=== PATIENT | female | born 1980 | race Caucasian/White ===

== ENCOUNTER 2016-04-26 06:31 | Emergency (ER) | payer OTHER ==
[~2016-04-26] VITALS: Wt 93.5 kg
[~2016-04-26 06:31] MED LIST: ADVAIR; ALBUTEROL; BCP; FAMO20TA44 PO; FLUT1DIS22; LIDOCAINE 4%; PNV1TABL43 PO; RTPRO5
[2016-04-26] MEDS ORDERED: AZIT250T94 PO (07:24)
[2016-04-26] MEDS ORDERED: IBUP-1542 PO (07:24)
--- NOTE | 2016-04-26 07:34 | ERD ---
ER Documentation Chief Complaint Date/Time DATE: 04/26/16 TIME: 07:33 Chief Complaint cough and congestion for the past few days. headache and sore throat HPI Patient is a 35-year-old female who presents with cough and congestion and headache for the past 3 days. She also admits to nasal congestion. Cough is dry worse at night. Denies fever. Denies nausea vomiting or diarrhea. Children are here with similar symptoms ROS All systems reviewed and are negative except as per history of present illness. Medications Home Meds Active Scripts Ibuprofen* (Motrin*) 600 Mg Tab, 600 MG PO Q6H Y for PAIN AND OR ELEVATED TEMP, #30 TAB Prov:ALEKSANDRA MEJIA PA-C 04/26/16 Azithromycin* (Zithromax*) 250 Mg Tablet, 250 MG PO .ZPACK DIRECTED, #6 TAB TAKE 500 MG (2 TABS) THE FIRST DAY THEN 250 MG (1 TAB) DAYS 2-5 Prov:ALEKSANDRA MEJIA PA-C 04/26/16 [Lidocaine Cream 4%] No Conflict Check, 1 APPLIC TID Y for PAIN, #1 TUB Prov:JESUS AUGUSTIN MD 12/12/15 Reported Medications Famotidine* (Pepcid* AC) 20 Mg Tablet, 20 MG PO Y 04/21/13 Vit/Fe Fumarate/Fa* ( Vitamin Tablet*) 1 Tab Tablet, 1 TAB PO DAILY 04/21/13 Albuterol Sulfate* (Proventil* Neb) 0.5 Ml Nebu 08/02/10 Fluticasone/Salmeterol (Advair 100-50 Diskus) 1 Disk W/Dev Disk.w.dev 08/02/10 [Bcp] No Conflict Check 10/13/09 [Advair] No Conflict Check 10/13/09 [Albuterol] No Conflict Check 10/13/09 Allergies Allergies: Coded Allergies: No Known Allergies (Verified Allergy, Mild, 04/21/13) PMhx/Soc History of Surgery: No Anesthesia Reaction: No Hx Neurological Disorder: No Hx Respiratory Disorders: Yes (ASTHMA) Hx Cardiac Disorders: No Hx Psychiatric Problems: No Hx Miscellaneous Medical Probl: No Hx Alcohol Use: Yes (OCCASSIONAL) Hx Substance Use: No Hx Tobacco Use: No Smoking Status: Never smoker FmHx Family History: No diabetes Physical Exam Vitals Vital Signs Date Time Temp Pulse Resp B/P Pulse Ox O2 Delivery O2 Flow Rate FiO2 04/26/16 06:51 98.1 67 21 109/68 98 Physical Exam Const: [] Head: Atraumatic Eyes: Normal Conjunctiva ENT: Normal External Ears, Nose and Mouth. Neck: Full range of motion..~ No meningismus. Resp: Clear to auscultation bilaterally Cardio: Regular rate and rhythm, no murmurs Abd: Soft, non tender, non distended. Normal bowel sounds Skin: No petechiae or rashes Back: No midline or flank tenderness Ext: No cyanosis, or edema Neur: Awake and alert Psych: Normal Mood and Affect Procedures/MDM Patient presents with cough and congestion. She is well-appearing in no distress. Vital signs are within normal limits. Low suspicion for pneumonia. Patient states that she will try antibiotics. I explained her I do not believe is indicated but she stated that she would only take as he got worse and so I gave her a Z-[place]. Recommended this patient follow up with her primary care doctor within 48 hours or return to the emergency room for any worsening of symptoms. However this time I do believe there is suitable for outpatient management. I answered all their questions and they agreed with the plan and were discharged home. Departure Diagnosis: Primary Impression: Bronchitis Condition: Stable Patient Instructions: Bronchitis, Antiobiotic Treatment (Adult) Additional Instructions: Call your primary care doctor TOMORROW for an appointment during the next 1-2 days.See the doctor sooner or return here if your condition worsens before your appointment time. ALEKSANDRA MEJIA PA-C Apr 26, 2016 07:34
== END 2016-04-26 07:37 | disposition home or self-care (01) ==
LOC: FTE 06:31
DX: J20.9 Acute bronchitis, unspecified (principal); J45.909 Unspecified asthma, uncomplicated
CPT/HCPCS: 99283

== ENCOUNTER 2016-05-24 07:05 | Emergency (ER) | payer OTHER ==
[~2016-05-24] VITALS: Wt 100.0 kg
[~2016-05-24 07:05] MED LIST changes: +AZIT250T94 PO; +IBUP-1542 PO
[2016-05-24] MEDS ORDERED: HYDR-902 PO (07:33)
[2016-05-24] MEDS ORDERED: IBUP-1542 PO (07:33)
--- NOTE | 2016-05-24 07:48 | ERD ---
ER Documentation Chief Complaint Date/Time DATE: 05/24/16 TIME: 07:45 Chief Complaint BACK PAIN SINCE LAST NIGHT HPI Patient is a 35-year-old female with asthma who presents with back pain. She tried Advil at midnight. The symptoms started last night. She said that she had overworked herself and then bent down and felt acute onset of right-sided lower back pain which radiated down her right leg. She feels a shooting type pain. She tried resting but this morning the pain was worse. She has no fevers and no incontinence. Upon review of old medical records the patient has multiple visits to the ER for various complaints. Her primary doctor is Dr. Mikey Esqueda. ROS All systems reviewed and are negative except as per history of present illness. Medications Home Meds Active Scripts Hydrocodone/Acetaminophen ([place] 10-325 Tablet) 1 Each Tablet, 1 TAB PO Q6H Y for PAIN, #7 TAB Prov:JASON RICHARD MD 05/24/16 Ibuprofen* (Motrin*) 600 Mg Tab, 600 MG PO Q6H Y for PAIN AND OR ELEVATED TEMP, #30 TAB Prov:JASON RICHARD MD 05/24/16 Ibuprofen* (Motrin*) 600 Mg Tab, 600 MG PO Q6H Y for PAIN AND OR ELEVATED TEMP, #30 TAB Prov:ALEKSANDRA MEJIA PA-C 04/26/16 Azithromycin* (Zithromax*) 250 Mg Tablet, 250 MG PO .ZPACK DIRECTED, #6 TAB TAKE 500 MG (2 TABS) THE FIRST DAY THEN 250 MG (1 TAB) DAYS 2-5 Prov:ALEKSANDRA MEJIA PA-C 04/26/16 [Lidocaine Cream 4%] No Conflict Check, 1 APPLIC TID Y for PAIN, #1 TUB Prov:JESUS AUGUSTIN MD 12/12/15 Reported Medications Famotidine* (Pepcid* AC) 20 Mg Tablet, 20 MG PO Y 04/21/13 Vit/Fe Fumarate/Fa* ( Vitamin Tablet*) 1 Tab Tablet, 1 TAB PO DAILY 04/21/13 Albuterol Sulfate* (Proventil* Neb) 0.5 Ml Nebu 08/02/10 Fluticasone/Salmeterol (Advair 100-50 Diskus) 1 Disk W/Dev Disk.w.dev 08/02/10 [Bcp] No Conflict Check 10/13/09 [Advair] No Conflict Check 10/13/09 [Albuterol] No Conflict Check 10/13/09 Allergies Allergies: Coded Allergies: No Known Allergies (Verified Allergy, Mild, 05/24/16) PMhx/Soc History of Surgery: No Anesthesia Reaction: No Hx Neurological Disorder: No Hx Respiratory Disorders: Yes (ASTHMA) Hx Cardiac Disorders: No Hx Psychiatric Problems: No Hx Miscellaneous Medical Probl: No Hx Alcohol Use: Yes (OCCASSIONAL) Hx Substance Use: No Hx Tobacco Use: No Smoking Status: Never smoker FmHx Family History: diabetes Physical Exam Vitals Vital Signs Date Time Temp Pulse Resp B/P Pulse Ox O2 Delivery O2 Flow Rate FiO2 05/24/16 07:10 98.0 78 18 115/65 99 Physical Exam Const: Mild distress secondary to back pain Head: Atraumatic Eyes: Normal Conjunctiva ENT: Normal External Ears, Nose and Mouth. Neck: Full range of motion..~ No meningismus. Resp: Clear to auscultation bilaterally Cardio: Regular rate and rhythm, no murmurs Abd: Soft, non tender, non distended. Normal bowel sounds Skin: No petechiae or rashes Back: No midline or flank tenderness, right lower back pain with palpation Ext: No cyanosis, or edema Neur: Awake and alert, able to extend both legs with good strength, 5 out of 5 strength in the lower extremity's bilaterally, able to flex and extend at the ankles without difficulty Psych: Normal Mood and Affect Procedures/MDM Patient is a 35-year-old female presents with acute back pain. At this point I doubt epidural abscess, epidural hematoma, or cauda equina syndrome. I do not believe the patient requires any imaging tests as her symptoms seem like muscular skeletal back pain with sciatica. The patient will be discharged home with a prescription for ibuprofen and [place]. She can follow-up with her primary doctor within 24-48 hours. She can return sooner for any worsening symptoms. She had no trauma to necessitate an x-ray. Departure Diagnosis: Primary Impression: Back pain Back pain location: low back pain Chronicity: acute Back pain laterality: right Sciatica presence: with sciatica Sciatica laterality: sciatica of right side Qualified Code: M54.41 - Acute right-sided low back pain with right -sided sciatica Condition: Fair Patient Instructions: Back Pain (Acute Or Chronic) Referrals: MIKEY ESQUEDA Additional Instructions: Call your primary care doctor TOMORROW for an appointment during the next 1-2 days.See the doctor sooner or return here if your condition worsens before your appointment time. JASON RICHARD MD May 24, 2016 07:48
== END 2016-05-24 07:43 | disposition home or self-care (01) ==
LOC: FTE 07:05
DX: M54.41 Lumbago with sciatica, right side (principal); J45.909 Unspecified asthma, uncomplicated
CPT/HCPCS: 99283

== ENCOUNTER 2016-10-30 19:07 | Emergency (ER) | END 2016-10-30 20:58 | disposition home or self-care (01) | DX: M20.011 Mallet finger of right finger(s) (principal); J45.909 Unspecified asthma, uncomplicated | CPT/HCPCS: 29130; 73140; Z7502 ==

== ENCOUNTER 2018-10-06 16:26 | Emergency (ER) | payer OTHER ==
[~2018-10-06] VITALS: Ht 165.1 cm; Wt 96.1 kg
[~2018-10-06 16:26] MED LIST changes: +AZIT250T PO; -AZIT250T94 PO; +HYDR-3980 PO
[2018-10-06 16:45] VITALS: BP 141/68; PULSE 63; RESP 18; Ht 165.1 cm; Wt 96.1 kg
[2018-10-06] MEDS ORDERED: PRED20TA PO (17:04)
[2018-10-06] MEDS ORDERED: IBUP-1542 PO (17:04)
[2018-10-06] MEDS ORDERED: AZIT250T PO (17:04)
[2018-10-06] MEDS ORDERED: FLUT9.9S NASAL (17:04)
--- NOTE | 2018-10-06 17:28 | ERD ---
ER Documentation Chief Complaint Chief Complaint PT with complaint of cough , ST and sinus pressure X 3 days. HPI 38-year-old female presents with complaints of maxillary sinus pressure, sore throat and cough since yesterday. She denies fevers, vomiting, abdominal pain, chest pain. He complains of dizziness with bending over and increased sinus pain. ROS All systems reviewed and are negative except as per history of present illness. Medications Home Meds Active Scripts Azithromycin* (Zithromax*) 250 Mg Tablet, 250 MG PO .ZPACK DIRECTED, #6 TAB TAKE 500 MG (2 TABS) THE FIRST DAY THEN 250 MG (1 TAB) DAYS 2-5 Prov:MATT ZUNIGA MD 10/06/18 Fluticasone Propionate (Flonase Allergy Relief) 9.9 Ml [place].susp, 1 SPRAY NASAL BID for 7 Days, #1 BOTTLE TO EACH NOSTRIL Prov:MATT ZUNIGA MD 10/06/18 Ibuprofen* (Motrin*) 600 Mg Tab, 600 MG PO Q6, #20 TAB Prov:MATT ZUNIGA MD 10/06/18 Prednisone* (Prednisone*) 20 Mg Tab, 40 MG PO DAILY for 5 Days, TAB Prov:MATT ZUNIGA MD 10/06/18 Hydrocodone/Acetaminophen ([place] 10-325 Tablet) 1 Each Tablet, 1 TAB PO Q6H PRN for PAIN, #7 TAB Prov:JASON RICHARD MD 05/24/16 Ibuprofen* (Motrin*) 600 Mg Tab, 600 MG PO Q6H PRN for PAIN AND OR ELEVATED TEMP, #30 TAB Prov:JASON RICHARD MD 05/24/16 Ibuprofen* (Motrin*) 600 Mg Tab, 600 MG PO Q6H PRN for PAIN AND OR ELEVATED TEMP, #30 TAB Prov:ALEKSANDRA MEJIA PA-C 04/26/16 Azithromycin* (Zithromax*) 250 Mg Tablet, 250 MG PO .[place] DIRECTED, #6 TAB TAKE 500 MG (2 TABS) THE FIRST DAY THEN 250 MG (1 TAB) DAYS 2-5 Prov:ALEKSANDRA MEJIA PA-C 04/26/16 [Lidocaine Cream 4%] No Conflict Check, 1 APPLIC TID PRN for PAIN, #1 TUB Prov:JESUS AUGUSTIN MD 12/12/15 Reported Medications Famotidine* (Pepcid* AC) 20 Mg Tablet, 20 MG PO PRN 04/21/13 Vit/Fe Fumarate/Fa* ( Vitamin Tablet*) 1 Tab Tablet, 1 TAB PO DAILY 04/21/13 Albuterol Sulfate* (Proventil* Neb) 0.5 Ml Nebu 08/02/10 Fluticasone/Salmeterol (Advair 100-50 Diskus) 1 Disk W/Dev Disk.w.dev 08/02/10 [Bcp] No Conflict Check 10/13/09 [Advair] No Conflict Check 10/13/09 [Albuterol] No Conflict Check 10/13/09 Allergies Allergies: Coded Allergies: No Known Allergies (Verified Allergy, Mild, 05/24/16) PMhx/Soc Medical and Surgical Hx: pt denies Surgical Hx History of Surgery: No Anesthesia Reaction: No Hx Neurological Disorder: No Hx Respiratory Disorders: Yes (ASTHMA) Hx Cardiac Disorders: No Hx Psychiatric Problems: No Hx Miscellaneous Medical Probl: No Hx Alcohol Use: Yes (OCCASSIONAL) Hx Substance Use: No Hx Tobacco Use: No Smoking Status: Never smoker FmHx Family History: No diabetes, No coronary disease, No other Physical Exam Vitals Vital Signs Date Temp Pulse Resp B/P (MAP) Pulse Ox O2 O2 Flow FiO2 Time Delivery Rate 10/06/18 98.2 63 18 141/68 98 16:45 (92) Physical Exam Const: No acute distress Head: Atraumatic Eyes: Normal Conjunctiva ENT: Normal External Ears, Nose and Mouth. TMs normal. Mild maxillary tenderness. Oropharynx normal. Neck: Full range of motion. No meningismus. Resp: Clear to auscultation bilaterally. Dry cough without rales, wheezing or retractions. Cardio: Regular rate and rhythm, no murmurs Abd: Soft, non tender, non distended. Normal bowel sounds Skin: No petechiae or rashes Back: No midline or flank tenderness Ext: No cyanosis, or edema Neur: Awake and alert Psych: Normal Mood and Affect Procedures/MDM Patient presents with symptoms likely acute viral URI. She does have sinus pain and tenderness although no additional signs or symptoms to suggest bacterial sinusitis. Patient will be treated with a short course of prednisone given hi story of asthma and stated wheezing at night. She will be given a prescription of Zithromax, encouraged to hold for 3 to 4 days and take for purulent nasal discharge, worsening symptoms patient agrees after counseling on viral versus bacterial causes of URI symptoms. She has no signs of hypoxemia, respiratory distress, additional concerning signs or symptoms. The patient was stable with no new complaints during the ER course. Clinically, there is no current evidence to suggest meningitis, sepsis, acute abdomen, pneumonia, stroke, acute coronary syndrome, pulmonary embolism, aortic dissection or any other emergent condition appearing to require further evaluation or hospitalization. Patient counseled regarding my diagnostic impression and care plan. Prior to discharge all questions answered. Pt agrees with treatment plan and understands strict return precautions. Pt is instructed to follow up with primary care provider within 24-48 hours. Precautionary instructions provided including instructions to return to the ER if not improving or for any worsening or changing symptoms or concerns. Disclaimer: Inadvertent spelling and grammatical errors are likely due to EHR/dictation software use and do not reflect on the overall quality of patient care. Also, please note that the electronic time recorded on this note does not necessarily reflect the actual time of the patient encounter. Departure Diagnosis: Primary Impression: URI, acute Condition: Stable Patient Instructions: Sinusitis, No Abx, Uri, Viral W/ Wheezing (Adult) Additional Instructions: Likely viral infection should resolve the next few days. We will give prescription of antibiotics but recommend holding for 3 to 5 days to take for purulent nasal discharge, worsening symptoms. Recheck otherwise for new worsening symptoms. MATT ZUNIGA MD Oct 06, 2018 17:28
== END 2018-10-06 17:38 | disposition home or self-care (01) ==
LOC: FTE 16:26
DX: J06.9 Acute upper respiratory infection, unspecified (principal); J45.909 Unspecified asthma, uncomplicated
CPT/HCPCS: 99283